=== PATIENT | female | born 1985 | race Caucasian/White ===

== ENCOUNTER 2020-07-20 12:01 | Emergency (ER) | payer SELFPAY ==
[~2020-07-20 12:01] MED LIST: COLACE 100MG C100 MG PO; IBUPROFEN600 MG PO; LORTAB 5-325 M1 EACH PO
[2020-07-20 13:08] LABS: HEMOGLOBIN 13.4 gm/dl (12.3-15.3); RED BLOOD COUNT 5.02 M/UL (4.00-5.10); WHITE BLOOD COUNT 7.6 K/UL (4.5-11.0)
[2020-07-20 13:36] LABS: BUN/CREATININE RATIO 9 (0-10)
== END 2020-07-20 21:00 | disposition short-term general hospital (02) ==
LOC: ER1 12:01
PROVIDERS: Physician Assistant
DX: O99.611 Diseases of the digestive system complicating pregnancy, first trimester (principal); K80.10 Calculus of gallbladder with chronic cholecystitis without obstruction; O09.521 Supervision of elderly multigravida, first trimester; Z3A.01 Less than 8 weeks gestation of pregnancy
CPT/HCPCS: 76705; 76817; 80053; 81001; 82150; 83690; 84702; 84703; 85025; 96374; 96375; 99285; J2270; J2405; J2543

== ENCOUNTER 2021-03-05 06:55 | Outpatient (CLI) | payer OTHER | END 2021-03-05 11:18 | disposition home or self-care (01) | LOC: GENOP 06:55 | DX: O47.1 False labor at or after 37 completed weeks of gestation (principal); Z3A.37 37 weeks gestation of pregnancy; O16.3 Unspecified maternal hypertension, third trimester | CPT/HCPCS: 81001; 96360; J7120 ==

== ENCOUNTER 2021-03-11 08:20 | Inpatient (IN) | payer OTHER ==
[~2021-03-11] VITALS: Ht 172.7 cm; Wt 78.5 kg
[2021-03-11 09:56] LABS: RED BLOOD COUNT 3.79 M/UL (4.00-5.10); WHITE BLOOD COUNT 13.5 K/UL (4.5-11.0)
[2021-03-11] MEDS ORDERED: COLACE 100MG C100 MG PO (12:51)
[2021-03-11] MEDS ORDERED: IBUPROFEN600 MG PO (12:51)
[2021-03-11] MEDS ORDERED: FERROUS SULFAT325 MG PO (12:51)
[2021-03-12 08:31] LABS: HEMOGLOBIN 7.6 gm/dl (12.3-15.3)
[2021-03-12] MEDS ORDERED: FERRETTS I40 MG/15 M PO (10:45)
[2021-03-12] MEDS ORDERED: HYDROCODON-ACE1 EAC4 PO (10:45)
== END 2021-03-12 17:13 | disposition home or self-care (01) | DRG 806 ==
LOC: GENOP 08:20 → OB 09:16
PROVIDERS: ADMIT Obstetrics & Gynecology
PROC: 10E0XZZ Delivery of Products of Conception, External Approach (ICD-10-PCS; principal; 2021-03-11)
PROC: 0KQM0ZZ Repair Perineum Muscle, Open Approach (ICD-10-PCS; 2021-03-11)
PROC: 10907ZC Drainage of Amniotic Fluid, Therapeutic from Products of Conception, Via Natural or Artificial Opening (ICD-10-PCS; 2021-03-11)
DX: O99.02 Anemia complicating childbirth (principal); D62 Acute posthemorrhagic anemia; Z37.0 Single live birth; Z20.822 Contact with and (suspected) exposure to COVID-19; O70.1 Second degree perineal laceration during delivery; Z3A.37 37 weeks gestation of pregnancy; Z90.49 Acquired absence of other specified parts of digestive tract
CPT/HCPCS: 36415; 85014; 85018; 85025; J0595; J2590; J7120; U0002